=== PATIENT | male | born 1995 | race Caucasian/White ===

== ENCOUNTER 2017-07-13 16:27 | Emergency (ER) | payer MEDICAID | END 2017-07-13 16:50 | disposition home or self-care (01) | LOC: E/R 16:50 → FTE 16:27 | DX: H93.13 Tinnitus, bilateral (principal) | CPT/HCPCS: 99283; Z7502 ==

== ENCOUNTER 2017-07-22 22:42 | Emergency (ER) | payer SELFPAY, MEDICAID ==
[2017-07-22] MEDS: predniSONE 20 MG TAB PO (23:41)
== END 2017-07-22 23:47 | disposition home or self-care (01) ==
LOC: FTE 23:47
DX: H93.11 Tinnitus, right ear (principal)
CPT/HCPCS: 99283